=== PATIENT | female | born 1975 | race African-American/Black ===

== ENCOUNTER 2016-05-08 19:15 | Emergency (ER) | payer SELFPAY ==
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
== END 2016-05-08 19:35 | disposition home or self-care (01) ==
LOC: CFTX 19:15
DX: S29.012A Strain of muscle and tendon of back wall of thorax, initial encounter (principal); S39.012A Strain of muscle, fascia and tendon of lower back, initial encounter; I10 Essential (primary) hypertension; V43.52XA Car driver injured in collision with other type car in traffic accident, initial encounter
CPT/HCPCS: 72072; 72100; 99284